=== PATIENT | female | born 1985 | race Asian ===

== ENCOUNTER → 2020-12-08 | Outpatient (CLI) | payer BC | END | disposition home or self-care (01) | LOC: MRI 09:00 | PROVIDERS: ATTEND Internal Medicine Endocrinology, Diabetes & Metabolism | DX: M47.816 Spondylosis without myelopathy or radiculopathy, lumbar region (principal); M51.26 Other intervertebral disc displacement, lumbar region; M48.061 Spinal stenosis, lumbar region without neurogenic claudication; M51.36 Other intervertebral disc degeneration, lumbar region; M54.30 Sciatica, unspecified side | CPT/HCPCS: 72148 ==

== ENCOUNTER 2021-01-16 14:02 | Emergency (ER) | payer BC ==
[~2021-01-16] VITALS: Ht 160 cm; Wt 109.0 kg
[2021-01-16] MEDS ORDERED: AZIL40TA PO (14:14)
[2021-01-16] MEDS ORDERED: CYCL5TAB PO (14:14)
[2021-01-16] MEDS ORDERED: DAPA10TA PO (14:14)
[2021-01-16] MEDS ORDERED: TRET20CR5 TP (14:14)
[2021-01-16] MEDS ORDERED: EMPA25TA PO (14:14)
[2021-01-16] MEDS ORDERED: SPIR100T5 PO (14:14)
[2021-01-16] MEDS ORDERED: TRAM50TA3 PO (14:14)
[2021-01-16] MEDS ORDERED: HYDROCODONE/ACETAMINOPHEN 5/325MG TABLET PO STA (14:35)
[2021-01-16] MEDS ORDERED: HYDR-4001 PO (18:21)
[2021-01-16] MEDS ORDERED: GABA-532 PO (18:21)
[2021-01-16] MEDS ORDERED: GABAPENTIN 300MG CAPSULE PO STA (18:24)
[2021-01-16 18:34] VITALS: BP 155/92
== END 2021-01-16 19:07 | disposition home or self-care (01) ==
LOC: ER 14:15
DX: M54.42 Lumbago with sciatica, left side (principal); G89.29 Other chronic pain; E11.9 Type 2 diabetes mellitus without complications; I10 Essential (primary) hypertension; Z88.8 Allergy status to other drugs, medicaments and biological substances; Z88.0 Allergy status to penicillin
CPT/HCPCS: 72148; 99284

== ENCOUNTER → 2021-02-05 | Outpatient (CLI) | payer BC ==
[~2021-02-05] MED LIST: AZIL40TA PO; CYCL5TAB PO; DAPA10TA PO; EMPA25TA PO; GABA-532 PO; HYDR-4001 PO; OLME20TA13 PO; SPIR100T5 PO; TRAM50TA3 PO; TRET20CR5 TP
[2021-02-05 10:51] LABS: BASOPHILS % 0.7 % (0.0-2.0); CLARITY URINE CLOUDY (CLEAR); COLOR URINE YELLOW (YELLOW); HEMOGLOBIN. 14.5 g/dL (12.0-16.0); KETONES URINE NEGATIVE (NEGATIVE); LEUKOCYTE ESTERASE URINE TRACE (NEGATIVE); LYMPHOCYTES % 33.2 % (20.0-50.0); MEAN CORPUSCULAR HEMOGLOBIN 29.6 pg (28.0-32.0); MEAN CORPUSCULAR VOLUME 89.6 fL (81.0-99.0); MONOCYTES % 7.7 % (2.0-8.0); NEUTROPHILS % 57.4 % (40.0-76.0); NITRITE URINE NEGATIVE (NEGATIVE); OCCULT BLOOD URINE NEGATIVE (NEGATIVE); PLATELET 306 x1000/uL (130-400); PROTEIN URINE NEGATIVE (NEGATIVE); RED BLOOD CELL COUNT 4.91 mill/uL (4.2-5.4); RED CELL DISTRIBUTION WIDTH 13.5 % (11.6-14.6); SPECIFIC GRAVITY URINE 1.028 (1.005-1.030); UROBILINOGEN URINE 0.2 E.U./dL (0.2-1.0)
[2021-02-05 10:58] LABS: INR 0.9; PARTIAL THROMBOPLASTIN TIME 29.1 sec (23.4-31.0); PROTHROMBIN TIME 9.9 sec (9.6-11.0)
[2021-02-05 11:07] LABS: CHLORIDE 104 mEq/L (98-107)
[2021-02-05 11:14] LABS: LDL CHOLESTEROL 111 mg/dL (5-100)
[2021-02-05 11:16] LABS: HDL CHOLESTEROL 47 mg/dL (40-59)
[2021-02-05 11:26] LABS: FOLIC ACID (FOLATE) SERUM 16.9 ng/mL (>5.38)
[2021-02-06 07:09] LABS: *CREATININE RANDOM URINE 92.3 mg/dL (Not Estab.); MICROALBUMIN RANDOM URINE 11.2 ug/mL (Not Estab.)
[2021-02-06 09:07] LABS: VITAMIN D 25-OH 20.4 ng/mL (30.0-100.0)
[2021-02-08 13:11] LABS: ANTI-NUCLEAR ANTIBODIES DIRECT Negative (Negative)
== END | disposition home or self-care (01) ==
LOC: LAB 10:00
PROVIDERS: ATTEND Internal Medicine Endocrinology, Diabetes & Metabolism
DX: Z01.818 Encounter for other preprocedural examination (principal); Z01.811 Encounter for preprocedural respiratory examination; E11.9 Type 2 diabetes mellitus without complications; E55.9 Vitamin D deficiency, unspecified; E04.9 Nontoxic goiter, unspecified; E78.5 Hyperlipidemia, unspecified
CPT/HCPCS: 36415; 71046; 80053; 80061; 81003; 82043; 82306; 82570; 82607; 82746; 83036; 84436; 84443; 85025; 85651; 86038; 86430

== ENCOUNTER → 2021-02-16 | Outpatient (CLI) | payer BC ==
[~2021-02-16] MED LIST changes: +METF-414 PO
== END | disposition home or self-care (01) ==
LOC: LAB 12:32
PROVIDERS: ATTEND Neurological Surgery
DX: Z01.812 Encounter for preprocedural laboratory examination (principal); Z20.822 Contact with and (suspected) exposure to COVID-19
CPT/HCPCS: 87426

== ENCOUNTER 2021-02-19 18:40 | Inpatient (IN) | payer BC ==
[~2021-02-19] VITALS: Ht 162.6 cm; Wt 110.7 kg
[~2021-02-19 18:40] MED LIST changes: -AZIL40TA PO; -CYCL5TAB PO; -EMPA25TA PO; -METF-414 PO
[2021-02-19 19:30] VITALS: BP 121/71
[2021-02-19] MEDS ORDERED: ONDANSETRON HCL 4MG/2ML INJ IV PRN (19:45)
[2021-02-19] MEDS ORDERED: HYDRALAZINE 20MG/ML VIAL IV PRN (19:45)
[2021-02-19] MEDS ORDERED: NALOXONE HCL 0.4 MG/ML 1ML VIAL IV PRN (19:45)
[2021-02-19] MEDS ORDERED: DEXTROSE 50% WATER 50ML SYRINGE IV PRN (19:45)
[2021-02-19] MEDS ORDERED: MORPHINE SULFATE 2 MG/ML CPJ (NOT FOR IM USE) IV PRN ×2 (19:45→22:45)
[2021-02-19] MEDS ORDERED: HYDRALAZINE 5 MG in SODIUM CHLORIDE 0.9% 49.5 ML IV PRN (20:15)
[2021-02-19] MEDS ORDERED: METF-414 PO (20:46)
[2021-02-19] MEDS: INSULIN LISPRO 100 UNITS/ML SUBCUT SCH (21:00)
[2021-02-19] MEDS: BLOOD SUGAR DIAGNOSTIC STRIP TEST SCH (21:18)
[2021-02-19] MEDS: SODIUM CHLORIDE 0.9% 1,000 ML IV SCH (21:18)
[2021-02-19] MEDS ORDERED: MORPHINE SULFATE 4 MG/ML CPJ (NOT FOR IM USE) IV PRN (22:45)
[2021-02-19] MEDS: HYDROCODONE/ACETAMINOPHEN 5/325MG TABLET PO PRN (22:52)
[2021-02-20] MEDS: HYDROCODONE/ACETAMINOPHEN 5/325MG TABLET PO PRN ×3 (03:12→20:20)
[2021-02-20] MEDS: INSULIN LISPRO 100 UNITS/ML SUBCUT SCH ×4 (05:52→20:19)
[2021-02-20] MEDS: BLOOD SUGAR DIAGNOSTIC STRIP TEST SCH ×4 (05:52→20:19)
[2021-02-20] MEDS ORDERED: BISACODYL 10MG SUPP PR PRN (07:45)
[2021-02-20 08:00] VITALS: BP 124/80
[2021-02-20] MEDS: LACTULOSE 20G/30ML UDC PO SCH ×4 (08:00→16:00)
[2021-02-20 08:42] LABS: BASOPHILS % 0.5 % (0.0-2.0); EOSINOPHILS % 1.7 % (0.0-5.0); HEMATOCRIT. 36.5 % (36.0-48.0); HEMOGLOBIN. 12.3 g/dL (12.0-16.0); LYMPHOCYTES % 27.1 % (20.0-50.0); MEAN CORPUSCULAR HEMOGLOBIN 30.4 pg (28.0-32.0); MEAN CORPUSCULAR VOLUME 90.3 fL (81.0-99.0); MEAN PLATELET VOLUME 8.3 fl (7.4-10.4); MONOCYTES % 12.7 % (2.0-8.0); PLATELET 220 x1000/uL (130-400); RED BLOOD CELL COUNT 4.04 mill/uL (4.2-5.4); RED CELL DISTRIBUTION WIDTH 13.2 % (11.6-14.6)
[2021-02-20 09:04] LABS: CHLORIDE 108 mEq/L (98-107)
[2021-02-20] MEDS: DOCUSATE SODIUM 100MG CAPSULE PO SCH ×2 (09:36→17:00)
[2021-02-20] MEDS: POLYETHYLENE GLYCOL 3350 (17GM) 1 DOSE PACK PO SCH (09:37)
[2021-02-20] MEDS: SODIUM CHLORIDE 0.9% 1,000 ML IV SCH ×2 (09:38→21:56)
[2021-02-20] MEDS: AMLODIPINE 2.5MG TABLET PO SCH (09:38)
[2021-02-20] MEDS ORDERED: POTASSIUM CHLORIDE 20MEQ TABLET SR PO SCH (10:30)
[2021-02-20 16:28] LABS: VITAMIN B12 SERUM 832 pg/mL (211-911)
[2021-02-20 20:00] VITALS: BP 144/73
[2021-02-21] MEDS: BLOOD SUGAR DIAGNOSTIC STRIP TEST SCH ×4 (05:51→21:00)
[2021-02-21] MEDS: INSULIN LISPRO 100 UNITS/ML SUBCUT SCH ×4 (05:55→21:00)
[2021-02-21] MEDS ORDERED: LACTULOSE 20G/30ML UDC PO SCH (06:00)
[2021-02-21] MEDS: HYDROCODONE/ACETAMINOPHEN 5/325MG TABLET PO PRN (06:50)
[2021-02-21 07:32] LABS: BASOPHILS % 0.4 % (0.0-2.0); EOSINOPHILS % 3.2 % (0.0-5.0); HEMATOCRIT. 37.6 % (36.0-48.0); HEMOGLOBIN. 12.7 g/dL (12.0-16.0); MEAN CORPUSCULAR HEMOGLOBIN 30.5 pg (28.0-32.0); MEAN CORPUSCULAR VOLUME 90.4 fL (81.0-99.0); NEUTROPHILS % 56.4 % (40.0-76.0); PLATELET 243 x1000/uL (130-400); RED BLOOD CELL COUNT 4.16 mill/uL (4.2-5.4); RED CELL DISTRIBUTION WIDTH 13.1 % (11.6-14.6)
[2021-02-21 07:56] LABS: FERRITIN 114 ng/mL (10-291)
[2021-02-21 08:00] VITALS: BP 107/68
[2021-02-21 08:05] LABS: CHLORIDE 109 mEq/L (98-107)
[2021-02-21 08:17] LABS: TOTAL IRON BINDING CAPACITY 281 ug/dL (250-450)
[2021-02-21 08:18] LABS: FOLIC ACID (FOLATE) SERUM > 20.00 ng/mL (>5.38)
[2021-02-21] MEDS: DOCUSATE SODIUM 100MG CAPSULE PO SCH ×2 (08:33→17:55)
[2021-02-21] MEDS: AMLODIPINE 2.5MG TABLET PO SCH (08:36)
[2021-02-21] MEDS: POLYETHYLENE GLYCOL 3350 (17GM) 1 DOSE PACK PO SCH (08:36)
[2021-02-21 15:45] LABS: HEPATITIS B SURFACE ANTIGEN NEGATIVE
[2021-02-21] MEDS: OXYCODONE HCL 5MG TABLET PO PRN (18:02)
[2021-02-21 20:00] VITALS: BP 147/86
[2021-02-22] MEDS: BLOOD SUGAR DIAGNOSTIC STRIP TEST SCH ×4 (06:30→20:55)
[2021-02-22] MEDS: INSULIN LISPRO 100 UNITS/ML SUBCUT SCH ×4 (06:33→20:45)
[2021-02-22] MEDS: OXYCODONE HCL 5MG TABLET PO PRN ×2 (06:34→10:44)
[2021-02-22] MEDS ORDERED: DIPHENHYDRAMINE 25MG CAPSULE PO PRN (06:45)
[2021-02-22 07:23] LABS: CHLORIDE 109 mEq/L (98-107)
[2021-02-22] MEDS: POLYETHYLENE GLYCOL 3350 (17GM) 1 DOSE PACK PO SCH (09:00)
[2021-02-22] MEDS: AMLODIPINE 2.5MG TABLET PO SCH (09:47)
[2021-02-22] MEDS: DOCUSATE SODIUM 100MG CAPSULE PO SCH ×2 (09:47→17:50)
[2021-02-22 11:08] VITALS: BP 135/81
[2021-02-22] MEDS: DIPHENHYDRAMINE 25MG CAPSULE PO PRN ×2 (17:51→22:53)
[2021-02-22] MEDS: HYDROCORTISONE 1% OINT 28.35GM TOP SCH (17:52)
[2021-02-22 20:00] VITALS: BP 127/64
[2021-02-23] MEDS: BLOOD SUGAR DIAGNOSTIC STRIP TEST SCH ×4 (06:29→20:18)
[2021-02-23] MEDS: INSULIN LISPRO 100 UNITS/ML SUBCUT SCH ×4 (06:29→20:18)
[2021-02-23] MEDS: OXYCODONE HCL 5MG TABLET PO PRN ×2 (08:08→17:31)
[2021-02-23] MEDS: AMLODIPINE 2.5MG TABLET PO SCH (08:11)
[2021-02-23] MEDS: DOCUSATE SODIUM 100MG CAPSULE PO SCH ×2 (08:11→17:31)
[2021-02-23] MEDS: HYDROCORTISONE 1% OINT 28.35GM TOP SCH (08:12)
[2021-02-23 08:29] VITALS: BP 128/83
[2021-02-23] MEDS: POLYETHYLENE GLYCOL 3350 (17GM) 1 DOSE PACK PO SCH (09:00)
[2021-02-23] MEDS ORDERED: HYDROCORTISONE 1% OINT 28.35GM TOP PRN (15:00)
[2021-02-23 20:00] VITALS: BP 117/57
[2021-02-23] MEDS: DIPHENHYDRAMINE 25MG CAPSULE PO PRN (20:18)
[2021-02-24] MEDS: BLOOD SUGAR DIAGNOSTIC STRIP TEST SCH ×4 (06:30→21:00)
[2021-02-24] MEDS: INSULIN LISPRO 100 UNITS/ML SUBCUT SCH ×4 (06:30→21:00)
[2021-02-24] MEDS: OXYCODONE HCL 5MG TABLET PO PRN ×3 (06:31→23:19)
[2021-02-24 07:34] LABS: BASOPHILS % 0.7 % (0.0-2.0); HEMATOCRIT. 37.3 % (36.0-48.0); HEMOGLOBIN. 12.6 g/dL (12.0-16.0); LYMPHOCYTES % 34.8 % (20.0-50.0); MEAN CORPUSCULAR HEMOGLOBIN 30.4 pg (28.0-32.0); MEAN PLATELET VOLUME 8.1 fl (7.4-10.4); MONOCYTES % 9.4 % (2.0-8.0); NEUTROPHILS % 51.1 % (40.0-76.0); PLATELET 265 x1000/uL (130-400); RED BLOOD CELL COUNT 4.14 mill/uL (4.2-5.4); RED CELL DISTRIBUTION WIDTH 13.5 % (11.6-14.6)
[2021-02-24 07:47] LABS: CHLORIDE 111 mEq/L (98-107)
[2021-02-24 08:00] VITALS: BP 127/85
[2021-02-24] MEDS: AMLODIPINE 2.5MG TABLET PO SCH (08:59)
[2021-02-24] MEDS: DOCUSATE SODIUM 100MG CAPSULE PO SCH ×2 (08:59→18:12)
[2021-02-24] MEDS: POLYETHYLENE GLYCOL 3350 (17GM) 1 DOSE PACK PO SCH ×2 (08:59→09:00)
[2021-02-24] MEDS: DIPHENHYDRAMINE 25MG CAPSULE PO PRN (21:11)
[2021-02-25] MEDS: BLOOD SUGAR DIAGNOSTIC STRIP TEST SCH ×2 (06:02→11:15)
[2021-02-25] MEDS: INSULIN LISPRO 100 UNITS/ML SUBCUT SCH ×2 (06:02→12:51)
[2021-02-25 08:00] VITALS: BP 150/61
[2021-02-25] MEDS: AMLODIPINE 2.5MG TABLET PO SCH (08:24)
[2021-02-25] MEDS: OXYCODONE HCL 5MG TABLET PO PRN ×2 (08:24→15:31)
[2021-02-25] MEDS: DOCUSATE SODIUM 100MG CAPSULE PO SCH (08:25)
[2021-02-25] MEDS: POLYETHYLENE GLYCOL 3350 (17GM) 1 DOSE PACK PO SCH (09:00)
[2021-02-25 14:30] VITALS: BP 134/83
[2021-02-25 15:31] VITALS: BP 136/64
[2021-02-26 15:10] LABS: 25-HYDROXY VITAMIN D3 6.5 ng/mL (.)
== END 2021-02-25 16:28 | disposition home health service (06) | DRG 552 ==
LOC: EEVIPCON 18:40
PROVIDERS: ADMIT Physical Medicine & Rehabilitation Spinal Cord Injury Medicine; ATTEND Internal Medicine Endocrinology, Diabetes & Metabolism
DX: M48.061 Spinal stenosis, lumbar region without neurogenic claudication (principal); G82.20 Paraplegia, unspecified; E46 Unspecified protein-calorie malnutrition; Z68.41 Body mass index [BMI] 40.0-44.9, adult; E11.9 Type 2 diabetes mellitus without complications; I10 Essential (primary) hypertension; M54.16 Radiculopathy, lumbar region; R26.9 Unspecified abnormalities of gait and mobility; E66.01 Morbid (severe) obesity due to excess calories; R53.81 Other malaise; E87.6 Hypokalemia; R79.89 Other specified abnormal findings of blood chemistry; E04.1 Nontoxic single thyroid nodule; E55.9 Vitamin D deficiency, unspecified; F06.34 Mood disorder due to known physiological condition with mixed features; Z88.8 Allergy status to other drugs, medicaments and biological substances; Z91.011 Allergy to milk products; Z91.040 Latex allergy status; Z82.49 Family history of ischemic heart disease and other diseases of the circulatory system; Z83.3 Family history of diabetes mellitus; Z79.899 Other long term (current) drug therapy; Z71.3 Dietary counseling and surveillance; Z88.1 Allergy status to other antibiotic agents; Z88.0 Allergy status to penicillin; Z91.048 Other nonmedicinal substance allergy status
CPT/HCPCS: 36415; 76700; 80053; 82306; 82607; 82728; 82746; 82962; 83540; 83550; 84134; 84443; 85025; 86705; 86709; 86803; 87340; 92523; 93970; 97110; 97116; 97162; 97166; 97530; 97535; J7030; Q0163

== ENCOUNTER → 2021-04-15 | Outpatient (CLI) | payer BC ==
[~2021-04-15] MED LIST changes: +METF-414 PO
== END | disposition home or self-care (01) ==
LOC: RAD 09:48
PROVIDERS: ATTEND Specialist
DX: I10 Essential (primary) hypertension (principal)
CPT/HCPCS: 93306

== ENCOUNTER → 2021-07-23 | Outpatient (CLI) | payer BC ==
[2021-07-23 08:39] LABS: BASOPHILS % 0.7 % (0.0-2.0); HEMATOCRIT. 43.7 % (36.0-48.0); HEMOGLOBIN. 14.6 g/dL (12.0-16.0); LYMPHOCYTES % 29.5 % (20.0-50.0); MEAN CORPUSCULAR VOLUME 89.9 fL (81.0-99.0); MEAN PLATELET VOLUME 8.4 fl (7.4-10.4); MONOCYTES % 7.2 % (2.0-8.0); NEUTROPHILS % 58.6 % (40.0-76.0); PLATELET 282 x1000/uL (130-400); RED BLOOD CELL COUNT 4.86 mill/uL (4.2-5.4); RED CELL DISTRIBUTION WIDTH 13.5 % (11.6-14.6)
[2021-07-23 08:55] LABS: CHLORIDE 106 mEq/L (98-107)
[2021-07-23 08:57] LABS: CLARITY URINE CLEAR (CLEAR); COLOR URINE YELLOW (YELLOW); KETONES URINE NEGATIVE (NEGATIVE); LEUKOCYTE ESTERASE URINE NEGATIVE (NEGATIVE); NITRITE URINE NEGATIVE (NEGATIVE); OCCULT BLOOD URINE 2+ (NEGATIVE); PH URINE 6.5 (4.5-8.0); PROTEIN URINE NEGATIVE (NEGATIVE); SPECIFIC GRAVITY URINE 1.019 (1.005-1.030); UROBILINOGEN URINE 0.2 E.U./dL (0.2-1.0)
[2021-07-23 09:08] LABS: HDL CHOLESTEROL 45 mg/dL (40-59); LDL CHOLESTEROL 108 mg/dL (5-100); T4 FREE 1.11 ng/dL (0.76-1.46)
[2021-07-24 07:11] LABS: *CREATININE RANDOM URINE 54.6 mg/dL (Not Estab.); MICROALBUMIN RANDOM URINE 7.8 ug/mL (Not Estab.)
== END | disposition home or self-care (01) ==
LOC: LAB 08:06
PROVIDERS: ATTEND Internal Medicine Endocrinology, Diabetes & Metabolism
DX: I10 Essential (primary) hypertension (principal); E78.5 Hyperlipidemia, unspecified; E11.9 Type 2 diabetes mellitus without complications; E04.9 Nontoxic goiter, unspecified
CPT/HCPCS: 36415; 80053; 80061; 81003; 82043; 82570; 83036; 84439; 84443; 85025

== ENCOUNTER → 2021-11-27 | Outpatient (CLI) | payer BC ==
[2021-11-27 07:47] LABS: BASOPHILS % 0.7 % (0.0-2.0); EOSINOPHILS % 1.4 % (0.0-5.0); HEMATOCRIT. 43.5 % (36.0-48.0); HEMOGLOBIN. 14.3 g/dL (12.0-16.0); LYMPHOCYTES % 28.6 % (20.0-50.0); MEAN CORPUSCULAR HEMOGLOBIN 29.7 pg (28.0-32.0); MEAN CORPUSCULAR VOLUME 90.9 fL (81.0-99.0); MEAN PLATELET VOLUME 7.8 fl (7.4-10.4); MONOCYTES % 7.7 % (2.0-8.0); NEUTROPHILS % 61.6 % (40.0-76.0); PLATELET 266 x1000/uL (130-400); RED BLOOD CELL COUNT 4.79 mill/uL (4.2-5.4); RED CELL DISTRIBUTION WIDTH 13.5 % (11.6-14.6)
[2021-11-27 07:55] LABS: CHLORIDE 107 mEq/L (98-107)
[2021-11-27 08:09] LABS: HDL CHOLESTEROL 48 mg/dL (40-59); LDL CHOLESTEROL 109 mg/dL (5-100); T4 FREE 1.06 ng/dL (0.76-1.46)
== END | disposition home or self-care (01) ==
LOC: LAB 07:15
PROVIDERS: ATTEND Internal Medicine Endocrinology, Diabetes & Metabolism
DX: I10 Essential (primary) hypertension (principal); E11.9 Type 2 diabetes mellitus without complications; E04.9 Nontoxic goiter, unspecified; E55.9 Vitamin D deficiency, unspecified; E78.5 Hyperlipidemia, unspecified
CPT/HCPCS: 36415; 80053; 80061; 82306; 83036; 84439; 84443; 85025

== ENCOUNTER → 2022-04-10 | Outpatient (CLI) | payer BC ==
[2022-04-10 10:05] LABS: BASOPHILS % 1.2 % (0.0-2.0); EOSINOPHILS % 1.3 % (0.0-5.0); HEMATOCRIT. 40.8 % (36.0-48.0); LYMPHOCYTES % 32.9 % (20.0-50.0); MEAN CORPUSCULAR HEMOGLOBIN 30.8 pg (28.0-32.0); MEAN CORPUSCULAR VOLUME 89.5 fL (81.0-99.0); MONOCYTES % 7.2 % (2.0-8.0); NEUTROPHILS % 57.4 % (40.0-76.0); RED BLOOD CELL COUNT 4.56 mill/uL (4.2-5.4); RED CELL DISTRIBUTION WIDTH 13.1 % (11.6-14.6)
[2022-04-10 10:11] LABS: CHLORIDE 105 mEq/L (98-107)
[2022-04-10 10:27] LABS: HDL CHOLESTEROL 45 mg/dL (40-59); LDL CHOLESTEROL 124 mg/dL (5-100)
[2022-04-10 10:31] LABS: PLATELET 274 x1000/uL (130-400)
[2022-04-12 05:08] LABS: VITAMIN D 25-OH 30.4 ng/mL (30.0-100.0)
== END | disposition home or self-care (01) ==
LOC: LAB 08:51
PROVIDERS: ATTEND Internal Medicine Endocrinology, Diabetes & Metabolism
DX: I10 Essential (primary) hypertension (principal); E11.9 Type 2 diabetes mellitus without complications; E55.9 Vitamin D deficiency, unspecified; E04.9 Nontoxic goiter, unspecified; E78.5 Hyperlipidemia, unspecified
CPT/HCPCS: 36415; 80053; 80061; 82306; 83036; 84443; 84479; 85025

== ENCOUNTER → 2022-07-20 | Outpatient (CLI) | payer BC ==
[2022-07-20 07:54] LABS: BASOPHILS % 0.6 % (0.0-2.0); HEMATOCRIT. 41.8 % (36.0-48.0); HEMOGLOBIN. 13.9 g/dL (12.0-16.0); LYMPHOCYTES % 33.2 % (20.0-50.0); MEAN CORPUSCULAR HEMOGLOBIN 30.5 pg (28.0-32.0); MEAN CORPUSCULAR VOLUME 91.6 fL (81.0-99.0); MEAN PLATELET VOLUME 8.2 fl (7.4-10.4); MONOCYTES % 7.8 % (2.0-8.0); NEUTROPHILS % 57.4 % (40.0-76.0); PLATELET 260 x1000/uL (130-400); RED BLOOD CELL COUNT 4.56 mill/uL (4.2-5.4); RED CELL DISTRIBUTION WIDTH 13.4 % (11.6-14.6)
[2022-07-20 08:18] LABS: CHLORIDE 107 mEq/L (98-107); HDL CHOLESTEROL 41 mg/dL (40-59); LDL CHOLESTEROL 120 mg/dL (5-100); T4 FREE 1.03 ng/dL (0.76-1.46)
== END | disposition home or self-care (01) ==
LOC: LAB 07:14
PROVIDERS: ATTEND Internal Medicine Endocrinology, Diabetes & Metabolism
DX: I10 Essential (primary) hypertension (principal); E11.9 Type 2 diabetes mellitus without complications; E55.9 Vitamin D deficiency, unspecified; E78.5 Hyperlipidemia, unspecified
CPT/HCPCS: 36415; 80053; 80061; 82306; 83036; 84439; 84443; 85025

== ENCOUNTER → 2022-09-21 | Outpatient (CLI) | payer BC | END | disposition home or self-care (01) | LOC: US 07:30 | PROVIDERS: ATTEND Internal Medicine Endocrinology, Diabetes & Metabolism | DX: M25.572 Pain in left ankle and joints of left foot (principal); M79.605 Pain in left leg; M79.604 Pain in right leg | CPT/HCPCS: 73630; 93970 ==

== ENCOUNTER → 2022-11-18 | Outpatient (CLI) | payer BC ==
[2022-11-18 14:09] LABS: C REACTIVE PROTEIN QUANT 2.7 mg/L (0.0-3.0); URIC ACID 4.5 mg/dL (2.6-7.2)
== END | disposition home or self-care (01) ==
LOC: LAB 07:40
PROVIDERS: ATTEND Internal Medicine
DX: M25.472 Effusion, left ankle (principal)
CPT/HCPCS: 36415; 84550; 85651; 86140

== ENCOUNTER → 2022-11-18 | Outpatient (CLI) | payer BC ==
[2022-11-18 08:34] LABS: BASOPHILS % 1.4 % (0.0-2.0); EOSINOPHILS % 1.3 % (0.0-5.0); HEMATOCRIT. 40.4 % (36.0-48.0); HEMOGLOBIN. 13.6 g/dL (12.0-16.0); LYMPHOCYTES % 31.5 % (20.0-50.0); MEAN CORPUSCULAR HEMOGLOBIN 30.5 pg (28.0-32.0); MEAN CORPUSCULAR HGB CONC 33.7 g/dL (31.0-37.0); MEAN CORPUSCULAR VOLUME 90.5 fL (81.0-99.0); MONOCYTES % 6.6 % (2.0-8.0); NEUTROPHILS % 59.2 % (40.0-76.0); PLATELET 294 x1000/uL (130-400); RED BLOOD CELL COUNT 4.47 mill/uL (4.2-5.4); RED CELL DISTRIBUTION WIDTH 13.3 % (11.6-14.6); WHITE BLOOD COUNT 7.6 x1000/uL (4.5-11.0)
[2022-11-18 09:38] LABS: CHLORIDE 106 mEq/L (98-107); INDEX HEMOLYSI 1 (1-3); INDEX ICTERIC 1 (1-4); INDEX LIPEMIC 1 (1-3); POTASSIUM 3.9 mEq/L (3.5-5.1); SODIUM 137 mEq/L (136-145)
[2022-11-18 09:56] LABS: ALANINE AMINOTRANSFERASE 51 IU/L (13-61); ALBUMIN 3.5 g/dL (3.4-5.0); ASPARTATE AMINOTRANSFERASE 21 IU/L (15-37); BILIRUBIN TOTAL 0.4 mg/dL (0.1-1.0); CARBON DIOXIDE 22 mEq/L (21-32); CHOLESTEROL 173 mg/dL (<200); CREATININE 0.4 mg/dL (0.6-1.3); GLUCOSE 122 mg/dL (70-105); HDL CHOLESTEROL 44 mg/dL (40-59); LDL CHOLESTEROL 100 mg/dL (5-100); PROTEIN TOTAL 7.3 g/dL (6.0-8.3); T4 FREE 1.16 ng/dL (0.76-1.46); TRIGLYCERIDE 126 mg/dL (0-150); UREA NITROGEN BLOOD 11 mg/dL (7-21)
[2022-11-19 13:06] LABS: *CREATININE RANDOM URINE 63.9 mg/dL (Not Estab.); MICROALBUMIN RANDOM URINE 6.3 ug/mL (Not Estab.)
== END | disposition home or self-care (01) ==
LOC: LAB 07:48
PROVIDERS: ATTEND Internal Medicine Endocrinology, Diabetes & Metabolism
DX: I10 Essential (primary) hypertension (principal); E78.00 Pure hypercholesterolemia, unspecified; E55.9 Vitamin D deficiency, unspecified; E04.9 Nontoxic goiter, unspecified
CPT/HCPCS: 36415; 80053; 80061; 82043; 82306; 82570; 83036; 84439; 84443; 85025

== ENCOUNTER → 2023-01-26 | Outpatient (CLI) | payer BC | END | disposition home or self-care (01) | LOC: US 10:46 | PROVIDERS: ATTEND Obstetrics & Gynecology | DX: Z30.46 Encounter for surveillance of implantable subdermal contraceptive (principal) | CPT/HCPCS: 76881 ==

== ENCOUNTER → 2023-03-05 | Outpatient (CLI) | payer BC ==
[2023-03-05 08:42] LABS: BASOPHILS % 0.7 % (0.0-2.0); HEMATOCRIT. 41.1 % (36.0-48.0); HEMOGLOBIN. 13.4 g/dL (12.0-16.0); LYMPHOCYTES % 33.3 % (20.0-50.0); MEAN CORPUSCULAR HGB CONC 32.5 g/dL (31.0-37.0); MEAN CORPUSCULAR VOLUME 92.4 fL (81.0-99.0); MEAN PLATELET VOLUME 8.1 fl (7.4-10.4); MONOCYTES % 8.7 % (2.0-8.0); NEUTROPHILS % 56.3 % (40.0-76.0); PLATELET 292 x1000/uL (130-400); RED BLOOD CELL COUNT 4.45 mill/uL (4.2-5.4); RED CELL DISTRIBUTION WIDTH 13.6 % (11.6-14.6); WHITE BLOOD COUNT 6.9 x1000/uL (4.5-11.0)
[2023-03-05 09:19] LABS: ALANINE AMINOTRANSFERASE 44 IU/L (10-49); ALBUMIN 4.4 g/dL (3.2-4.8); ASPARTATE AMINOTRANSFERASE 23 IU/L (<34); CALCIUM 9.3 mg/dL (8.7-10.4); CARBON DIOXIDE 25 mEq/L (21-32); CHLORIDE 105 mEq/L (98-107); CHOLESTEROL 159 mg/dL (<200); CREATININE 0.5 mg/dL (0.6-1.0); GLUCOSE 115 mg/dL (70-105); HDL CHOLESTEROL 45 mg/dL (>65); LDL CHOLESTEROL 113 mg/dL (5-100); POTASSIUM 3.9 mEq/L (3.5-5.1); PROTEIN TOTAL 7.5 g/dL (6.0-8.3); SODIUM 138 mEq/L (136-145); T4 FREE 1.32 ng/dL (0.89-1.76); THYROID STIMULATING HORMONE 2.58 uIU/mL (0.55-4.78); TRIGLYCERIDE 151 mg/dL (0-150); UREA NITROGEN BLOOD 13 mg/dL (9-23)
[2023-03-07 04:07] LABS: *CREATININE RANDOM URINE 61.4 mg/dL (Not Estab.); MICROALBUMIN RANDOM URINE 6.2 ug/mL (Not Estab.)
== END | disposition home or self-care (01) ==
LOC: LAB 09:00
PROVIDERS: ATTEND Internal Medicine Endocrinology, Diabetes & Metabolism
DX: I10 Essential (primary) hypertension (principal); E11.9 Type 2 diabetes mellitus without complications; E55.9 Vitamin D deficiency, unspecified; E78.00 Pure hypercholesterolemia, unspecified; E66.9 Obesity, unspecified
CPT/HCPCS: 36415; 80053; 80061; 82043; 82306; 82570; 83036; 84439; 84443; 85025

== ENCOUNTER → 2023-07-11 | Outpatient (CLI) | payer BC ==
[2023-07-11 08:53] LABS: BASOPHILS % 0.8 % (0.0-2.0); EOSINOPHILS % 0.3 % (0.0-5.0); HEMATOCRIT. 43.8 % (36.0-48.0); HEMOGLOBIN. 14.6 g/dL (12.0-16.0); LYMPHOCYTES % 26.3 % (20.0-50.0); MEAN CORPUSCULAR HEMOGLOBIN 30.1 pg (28.0-32.0); MEAN CORPUSCULAR HGB CONC 33.4 g/dL (31.0-37.0); MEAN CORPUSCULAR VOLUME 89.9 fL (81.0-99.0); MEAN PLATELET VOLUME 8.3 fl (7.4-10.4); MONOCYTES % 6.8 % (2.0-8.0); NEUTROPHILS % 65.8 % (40.0-76.0); PLATELET 282 x1000/uL (130-400); RED BLOOD CELL COUNT 4.87 mill/uL (4.2-5.4); RED CELL DISTRIBUTION WIDTH 13.8 % (11.6-14.6); WHITE BLOOD COUNT 8.8 x1000/uL (4.5-11.0)
[2023-07-11 09:22] LABS: CHLORIDE 103 mEq/L (98-107); SODIUM 136 mEq/L (136-145)
[2023-07-11 09:23] LABS: CARBON DIOXIDE 24 mEq/L (21-32)
[2023-07-11 09:24] LABS: CALCIUM 9.7 mg/dL (8.7-10.4)
[2023-07-11 09:28] LABS: CREATININE 0.6 mg/dL (0.6-1.0)
[2023-07-11 09:29] LABS: GLUCOSE 130 mg/dL (70-105); TRIGLYCERIDE 139 mg/dL (0-150); UREA NITROGEN BLOOD 7 mg/dL (9-23)
[2023-07-11 09:30] LABS: ALANINE AMINOTRANSFERASE 75 IU/L (10-49); ASPARTATE AMINOTRANSFERASE 33 IU/L (<34); LDL CHOLESTEROL 152 mg/dL (5-100)
[2023-07-11 09:31] LABS: BILIRUBIN TOTAL 1.1 mg/dL (0.1-1.0); CHOLESTEROL 193 mg/dL (<200); HDL CHOLESTEROL 55 mg/dL (>65); PROTEIN TOTAL 8.4 g/dL (6.0-8.3)
[2023-07-11 09:34] LABS: THYROID STIMULATING HORMONE 1.31 uIU/mL (0.55-4.78)
[2023-07-11 09:35] LABS: T4 FREE 1.46 ng/dL (0.89-1.76)
== END | disposition home or self-care (01) ==
LOC: LAB 08:22
PROVIDERS: ATTEND Internal Medicine Endocrinology, Diabetes & Metabolism
DX: I10 Essential (primary) hypertension (principal); E55.9 Vitamin D deficiency, unspecified; E78.5 Hyperlipidemia, unspecified; E11.9 Type 2 diabetes mellitus without complications; E04.9 Nontoxic goiter, unspecified
CPT/HCPCS: 36415; 80053; 80061; 82306; 83036; 84439; 84443; 85025

== ENCOUNTER → 2023-11-21 | Outpatient (CLI) | payer BC ==
[2023-11-21 08:53] LABS: BASOPHILS % 0.4 % (0.0-2.0); EOSINOPHILS % 0.3 % (0.0-5.0); HEMATOCRIT. 46.1 % (36.0-48.0); HEMOGLOBIN. 14.9 g/dL (12.0-16.0); MEAN CORPUSCULAR HEMOGLOBIN 29.7 pg (28.0-32.0); MEAN CORPUSCULAR HGB CONC 32.3 g/dL (31.0-37.0); MEAN CORPUSCULAR VOLUME 91.9 fL (81.0-99.0); MEAN PLATELET VOLUME 8.3 fl (7.4-10.4); MONOCYTES % 6.1 % (2.0-8.0); NEUTROPHILS % 67.2 % (40.0-76.0); PLATELET 303 x1000/uL (130-400); RED BLOOD CELL COUNT 5.01 mill/uL (4.2-5.4); RED CELL DISTRIBUTION WIDTH 13.6 % (11.6-14.6)
[2023-11-21 09:06] LABS: CHLORIDE 104 mEq/L (98-107); POTASSIUM 4.1 mEq/L (3.5-5.1); SODIUM 136 mEq/L (136-145)
[2023-11-21 09:07] LABS: CALCIUM 9.9 mg/dL (8.7-10.4); CARBON DIOXIDE 24 mEq/L (21-32)
[2023-11-21 09:12] LABS: CREATININE 0.6 mg/dL (0.6-1.0); GLUCOSE 144 mg/dL (70-105); TRIGLYCERIDE 132 mg/dL (0-150); UREA NITROGEN BLOOD 6 mg/dL (9-23)
[2023-11-21 09:13] LABS: LDL CHOLESTEROL 137 mg/dL (5-100)
[2023-11-21 09:14] LABS: ALANINE AMINOTRANSFERASE 74 IU/L (10-49); ALBUMIN 4.9 g/dL (3.2-4.8); ASPARTATE AMINOTRANSFERASE 35 IU/L (<34); BILIRUBIN TOTAL 0.7 mg/dL (0.1-1.0); CHOLESTEROL 197 mg/dL (<200); HDL CHOLESTEROL 51 mg/dL (>65); PROTEIN TOTAL 7.7 g/dL (6.0-8.3)
[2023-11-21 09:15] LABS: THYROID STIMULATING HORMONE 1.35 uIU/mL (0.55-4.78)
== END | disposition home or self-care (01) ==
LOC: LAB 08:22
PROVIDERS: ATTEND Internal Medicine Endocrinology, Diabetes & Metabolism
DX: I10 Essential (primary) hypertension (principal); E11.9 Type 2 diabetes mellitus without complications; E78.5 Hyperlipidemia, unspecified; E66.9 Obesity, unspecified; E55.9 Vitamin D deficiency, unspecified; E04.9 Nontoxic goiter, unspecified
CPT/HCPCS: 36415; 80053; 80061; 82306; 82533; 83036; 84443; 85025

== ENCOUNTER → 2024-02-05 | Outpatient (CLI) | payer BC ==
[2024-02-05 09:42] LABS: BASOPHILS % 0.5 % (0.0-2.0); EOSINOPHILS % 0.9 % (0.0-5.0); HEMATOCRIT. 46.1 % (36.0-48.0); HEMOGLOBIN. 15.2 g/dL (12.0-16.0); LYMPHOCYTES % 33.3 % (20.0-50.0); MEAN CORPUSCULAR HEMOGLOBIN 30.1 pg (28.0-32.0); MEAN CORPUSCULAR HGB CONC 32.9 g/dL (31.0-37.0); MEAN CORPUSCULAR VOLUME 91.4 fL (81.0-99.0); MEAN PLATELET VOLUME 8.4 fl (7.4-10.4); MONOCYTES % 7.9 % (2.0-8.0); NEUTROPHILS % 57.4 % (40.0-76.0); PLATELET 290 x1000/uL (130-400); RED BLOOD CELL COUNT 5.04 mill/uL (4.2-5.4); RED CELL DISTRIBUTION WIDTH 13.6 % (11.6-14.6); WHITE BLOOD COUNT 6.2 x1000/uL (4.5-11.0)
[2024-02-05 09:52] LABS: CARBON DIOXIDE 26 mEq/L (21-32); CHLORIDE 103 mEq/L (98-107); POTASSIUM 3.8 mEq/L (3.5-5.1); SODIUM 137 mEq/L (136-145)
[2024-02-05 09:53] LABS: CALCIUM 10.2 mg/dL (8.7-10.4)
[2024-02-05 09:57] LABS: CREATININE 0.6 mg/dL (0.6-1.0); GLUCOSE 127 mg/dL (70-105)
[2024-02-05 09:58] LABS: TRIGLYCERIDE 164 mg/dL (0-150); UREA NITROGEN BLOOD 10 mg/dL (9-23)
[2024-02-05 09:59] LABS: ALANINE AMINOTRANSFERASE 55 IU/L (10-49); ALBUMIN 4.6 g/dL (3.2-4.8); ASPARTATE AMINOTRANSFERASE 25 IU/L (<34); LDL CHOLESTEROL 126 mg/dL (5-100)
[2024-02-05 10:00] LABS: BILIRUBIN TOTAL 0.9 mg/dL (0.1-1.0); CHOLESTEROL 183 mg/dL (<200); HDL CHOLESTEROL 46 mg/dL (>65); PROTEIN TOTAL 7.8 g/dL (6.0-8.3)
[2024-02-05 10:02] LABS: T4 FREE 1.35 ng/dL (0.89-1.76); THYROID STIMULATING HORMONE 2.28 uIU/mL (0.55-4.78)
[2024-02-06 19:06] LABS: *CREATININE RANDOM URINE 117.2 mg/dL (Not Estab.); MICROALBUMIN RANDOM URINE 31.4 ug/mL (Not Estab.)
== END | disposition home or self-care (01) ==
LOC: LAB 09:05
PROVIDERS: ATTEND Internal Medicine Endocrinology, Diabetes & Metabolism
DX: I10 Essential (primary) hypertension (principal); E11.9 Type 2 diabetes mellitus without complications; E55.9 Vitamin D deficiency, unspecified; E78.00 Pure hypercholesterolemia, unspecified
CPT/HCPCS: 36415; 80053; 80061; 82043; 82270; 82306; 82570; 83036; 84439; 84443; 85025